=== PATIENT | female | born 1955 | race Caucasian/White ===

== ENCOUNTER 2018-06-13 05:37 | Inpatient (IN) ==
[2018-06-13] MEDS ORDERED: LIDOCAINE W/ SODIUM BICARB 0.5 ML SYR SUBD PRN ×2 (06:00→06:49)
[2018-06-13] MEDS ORDERED: BUPivacaine Liposome/PF (Exparel) Inj 20ml vial INFIL ONE ×2 (06:00→07:19)
[2018-06-13] MEDS ORDERED: ceFAZolin Inj 2gm (Premix) 2 GM/50 ML BAG IV ONE ×2 (06:00→06:02)
[2018-06-13] MEDS ORDERED: Ketorolac Inj 30 MG, Morphine Inj (Ortho Cocktail) 5 MG, BUPivacaine Inj 0.25% PF 150 MG SPLASH ONE ×3 (06:00)
[2018-06-13] MEDS ORDERED: Tranexamic Acid 1,000 MG in Sodium Chloride 0.9% 100 ML IV SCH (06:00)
[2018-06-13] MEDS ORDERED: Nasal Sanitizer POPSWAB ampule 3 AMP (Nozin) PREOP DOSE ENOS SCH (06:00)
[2018-06-13] MEDS ORDERED: Lactated Ringers 1,000 ML PRIMARY IV SCH ×2 (06:00→07:00)
[2018-06-13] MEDS ORDERED: Lactated Ringers 1,000 ML PRIMARY IV ONE (06:02)
[2018-06-13] MEDS ORDERED: LIDOCAINE W/ SODIUM BICARB 0.5 ML SYR ONE (06:02)
[2018-06-13 06:38] LABS: BILIRUBIN,URINE NEGATIVE (NEG); CLARITY,URINE Slightly Cloudy (CLEAR); COLOR,URINE YELLOW; GLUCOSE, URINE (UA) NEGATIVE (NEG); OCCULT BLOOD,URINE Trace-lysed (NEG); PROTEIN,URINE NEGATIVE (NEG); UROBILINOGEN,URINE 0.2 mg/dL (0.2)
[2018-06-13 06:46] LABS: URINE SAMPLE TYPE VOIDED SPECIMEN; WBC,URINE 0-1
[2018-06-13] MEDS ORDERED: IPRATROPIUM/ALBUTEROL SULFATE 3 ML NEB NEB ONE (06:46)
[2018-06-13 06:47] LABS: BACTERIA,URINE FEW; SQUAMOUS EPITHELIAL CELL,UR MANY
[2018-06-13] MEDS ORDERED: Ondansetron ODT Tab 8 MG TAB PO PRN (06:49)
[2018-06-13] MEDS ORDERED: HYDROmorphone 2 MG/1 ML IVP PRN (06:49)
[2018-06-13] MEDS ORDERED: Prochlorperazine Edisylate Inj 10mg/2ml vial IVP PRN (06:49)
[2018-06-13] MEDS ORDERED: ONDANSETRON 4 MG/2 ML VIAL IVP PRN (06:49)
[2018-06-13] MEDS ORDERED: fentaNYL Inj 100 MCG/2 ML VIAL IVP PRN (06:49)
[2018-06-13] MEDS ORDERED: Acetaminophen 1000mg Inj 1,000 MG/100 ML VIAL IV ONE (06:49)
--- NOTE | 2018-06-13 06:52 | CRNA.PROGR ---
Post Anesthesia Phase II - Post Anesthesia Phase II Patient Stable and Discharged To: Med/Surg Care Assumed By Surgeon: Scott Boles MD
--- NOTE | 2018-06-13 06:52 | CRNA.PROGR ---
Anesthesia Time - Procedure/Recovery Time Start Date: 06/13/18 End Date: 06/13/18 - Other Weight: 66.86 kg Height: 5 ft 6 in Body Mass Index (BMI): 23.8 Physical Status: P2 (tobacco) Anesthesia Type: General Anesthesia : ET
[2018-06-13] MEDS ORDERED: Sodium Chloride 0.9% 2,000 ML PRIMARY IV ONE (07:04)
[2018-06-13] MEDS ORDERED: Sodium Chloride 0.9% 500 ML ONE (07:04)
[2018-06-13] MEDS ORDERED: VECURONIUM BROMIDE 10 MG VIAL ONE (07:09)
[2018-06-13] MEDS ORDERED: MIDAZOLAM HCL 2 MG/2 ML VIAL ONE (07:09)
[2018-06-13] MEDS ORDERED: KETAMINE HCL 100 MG/2 ML SYRINGE IV ONE (07:09)
[2018-06-13] MEDS ORDERED: DEXAMETHASONE PF 10 MG/1 ML VIAL ONE (07:09)
[2018-06-13] MEDS ORDERED: SUFENTANIL 50 MCG/1 ML ONE (07:09)
[2018-06-13] MEDS ORDERED: Gentamicin Inj 40 MG/ML VIAL ONE (07:18)
[2018-06-13] MEDS ORDERED: Sodium Chloride 0.9% vial 40 ML ONE (07:18)
[2018-06-13] MEDS ORDERED: HEPARIN 10,000 UNIT/1 ML ONE (07:19)
[2018-06-13] MEDS ORDERED: ePHEDrine Inj 50 MG/ML AMP ONE (08:39)
[2018-06-13] MEDS ORDERED: SUGAMMADEX SODIUM 200 MG/2 ML VIAL IV ONE (09:24)
[2018-06-13 11:39] VITALS: RESP 16; TEMP 97.1
[2018-06-13 11:41] VITALS: BP 110/76; O2SAT 97
== END 2018-06-13 10:29 | disposition home or self-care (01) | DRG 951 ==
LOC: OPS 05:37
PROVIDERS: ADMIT Orthopaedic Surgery; ATTEND Orthopaedic Surgery

== ENCOUNTER 2018-06-19 09:44 | Inpatient (IN) ==
[~2018-06-19 09:44] MED LIST: BUPivacaine Liposome/PF (Exparel) Inj 20ml vial INFIL ONE; Ketorolac Inj 30 MG, Morphine Inj (Ortho Cocktail) 5 MG, BUPivacaine Inj 0.25% PF 150 MG SPLASH ONE; LIDOCAINE W/ SODIUM BICARB 0.5 ML SYR ONE; LIDOCAINE W/ SODIUM BICARB 0.5 ML SYR SUBD PRN; Lactated Ringers 1,000 ML PRIMARY IV ONE; Nasal Sanitizer POPSWAB ampule 3 AMP (Nozin) PREOP DOSE ENOS SCH; Tranexamic Acid 1,000 MG in Sodium Chloride 0.9% 100 ML IV SCH; ceFAZolin Inj 2gm (Premix) 2 GM/50 ML BAG IV ONE
[2018-06-19 10:08] LABS: BILIRUBIN,URINE NEGATIVE (NEG); CLARITY,URINE CLEAR (CLEAR); COLOR,URINE YELLOW (Y); GLUCOSE, URINE (UA) NEGATIVE (NEG); OCCULT BLOOD,URINE NEGATIVE (NEG); PH,URINE 5.5 (5.0-8.5); PROTEIN,URINE NEGATIVE (NEG); UROBILINOGEN,URINE 0.2 EU/dL (0.2)
[2018-06-19 10:09] LABS: URINE SAMPLE TYPE CLEAN CATCH URINE
[2018-06-19] MEDS ORDERED: LIDOCAINE W/ SODIUM BICARB 0.5 ML SYR SUBD PRN (10:15)
[2018-06-19] MEDS ORDERED: fentaNYL Inj 100 MCG/2 ML VIAL IVP PRN (10:15)
[2018-06-19] MEDS ORDERED: ONDANSETRON 4 MG/2 ML VIAL IVP PRN ×2 (10:15→16:22)
[2018-06-19] MEDS ORDERED: ATROPINE SULFATE 0.4 MG/1 ML VIAL IVP PRN (10:15)
[2018-06-19] MEDS ORDERED: Ondansetron ODT Tab 8 MG TAB PO PRN ×2 (10:15→16:22)
[2018-06-19] MEDS ORDERED: HYDROmorphone 2 MG/1 ML IVP PRN ×2 (10:15→16:22)
[2018-06-19] MEDS ORDERED: Lactated Ringers 1,000 ML PRIMARY IV SCH (10:15)
--- NOTE | 2018-06-19 10:16 | CRNA.PROGR ---
Anesthesia Time - Procedure/Recovery Time Start Date: 06/19/18 End Date: 06/19/18 Anesthesia : Time In: 11:38 Anesthesia : Time Out: 14:41 Anesthesia : Total Time: 183 - Total Anesthesia Time Total Anesthesia Time (minutes): 183 - Other Weight: 69.4 kg Height: 5 ft 6 in Body Mass Index (BMI): 24.7 Physical Status: P2 Anesthesia Type: General Anesthesia : ET
--- NOTE | 2018-06-19 10:17 | CRNA.PROGR ---
Post Anesthesia Phase II - Post Anesthesia Phase II Patient Stable and Discharged To: Med/Surg Care Assumed By Surgeon: Scott Boles MD Total Lyndon Score at Discharge: 9 Post Anesthesia Discharge Criteria Met: Yes
--- NOTE | 2018-06-19 10:17 | CRNA.PROGR ---
Anesthesia Recovery Phase I - Post Anesthesia Evaluation Patient's Condition on Arrival in Phase I: Stable (did very well.) Patient's Condition on Arrival in Phase II: Stable Pain Level: 2
[2018-06-19] MEDS ORDERED: IPRATROPIUM/ALBUTEROL SULFATE 3 ML NEB NEB ONE (10:25)
[2018-06-19] MEDS ORDERED: Acetaminophen 1000mg Inj 1,000 MG/100 ML VIAL IV ONE (10:25)
[2018-06-19] MEDS ORDERED: TRANEXAMIC ACID 1,000 MG / 10 ML VIAL ONE (10:56)
[2018-06-19] MEDS ORDERED: fentaNYL Inj 250 MCG/5 ML VIAL ONE (11:05)
[2018-06-19] MEDS ORDERED: MIDAZOLAM HCL 2 MG/2 ML VIAL ONE (11:06)
[2018-06-19] MEDS ORDERED: KETAMINE HCL 100 MG/2 ML SYRINGE IV ONE (11:06)
[2018-06-19] MEDS ORDERED: PROPOFOL 10 MG/1 ML (200 MG/20 ML) VIAL IV ONE (11:08)
[2018-06-19] MEDS ORDERED: Gentamicin Inj 40 MG/ML VIAL ONE (11:11)
[2018-06-19] MEDS ORDERED: Sodium Chloride 0.9% vial 40 ML ONE (11:11)
[2018-06-19] MEDS ORDERED: BUPivacaine Liposome/PF (Exparel) Inj 20ml vial INFIL ONE (11:11)
[2018-06-19] MEDS ORDERED: HEPARIN 10,000 UNIT/1 ML ONE (11:11)
[2018-06-19] MEDS ORDERED: Sodium Chloride 0.9% 0 ML PRIMARY IV ONE (11:12)
[2018-06-19] MEDS ORDERED: Sodium Chloride 0.9% 0 ML ONE (11:12)
[2018-06-19] MEDS ORDERED: VECURONIUM BROMIDE 10 MG VIAL ONE (11:13)
[2018-06-19] MEDS ORDERED: Sodium Chloride 0.9% vial 10 ML ONE (11:14)
[2018-06-19] MEDS ORDERED: Hetastarch 6% + NS 500 ML IV ONE (11:15)
[2018-06-19] MEDS ORDERED: Sodium Chloride 0.9% 500 ML ONE (11:20)
[2018-06-19] MEDS ORDERED: Sodium Chloride 0.9% 2,000 ML PRIMARY IV ONE (11:20)
[2018-06-19] MEDS ORDERED: ePHEDrine Inj 50 MG/ML AMP ONE (12:13)
[2018-06-19] MEDS ORDERED: NEOSTIGMINE 1 MG/1 ML - 10 ML ONE (14:06)
[2018-06-19] MEDS ORDERED: GLYCOPYRROLATE 0.2 MG/1 ML VIAL ONE (14:06)
[2018-06-19] MEDS ORDERED: ONDANSETRON 4 MG/2 ML VIAL ONE (14:08)
[2018-06-19] MEDS ORDERED: Sodium Chloride 0.9% 250 ML ONE (14:25)
[2018-06-19] MEDS: Lactated Ringers 1,000 ML PRIMARY IV SCH ×4 (16:00→23:07)
[2018-06-19] MEDS ORDERED: Lactated Ringers 1,000 ML PRIMARY IV ONE (16:08)
[2018-06-19] MEDS ORDERED: CALCIUM CARBONATE 500 MG (TUMS) CHEWABLE TABLET PO PRN (16:22)
[2018-06-19] MEDS ORDERED: BISACODYL 10 MG SUPPOSITORY RECTAL PRN (16:22)
[2018-06-19] MEDS ORDERED: MAG HYDROX/AL HYDROX/SIMETH 30 ML SUSP PO PRN (16:22)
[2018-06-19] MEDS ORDERED: ACETAMINOPHEN 325 MG TABLET PO PRN (16:22)
[2018-06-19] MEDS ORDERED: Prochlorperazine Tab 10 MG TAB PO PRN (16:22)
[2018-06-19] MEDS ORDERED: BISACODYL 5 MG TABLET PO PRN (16:22)
[2018-06-19] MEDS ORDERED: HYDROcodone-APAP 7.5 MG-325 MG TABLET PO PRN (16:22)
[2018-06-19] MEDS ORDERED: diphenhydrAMINE 25 MG CAPSULE PO PRN (16:22)
--- NOTE | 2018-06-19 17:03 | DI ---
AP PELVIS AND RIGHT HIP, 06/19/2018 11:43 AM: Clinical History: Status post right total hip replacement. Right hip replacement for Osteoarthritis Previous Exam: 05/22/2018. Views: AP pelvis with AP and lateral views of replaced hip. Patient is status post right total hip replacement. Prosthetic joint articulates normally. Drain tube present. Reading: Right total hip replacement. Prosthetic joint articulates normally.
--- NOTE | 2018-06-19 19:03 | ORTHO.PROG ---
Last Taken Vital Signs: Vital Signs - Last Taken Temperature 97.0 F 06/19/18 16:32 Pulse Rate 62 06/19/18 16:32 Respiratory Rate 17 06/19/18 16:32 Blood Pressure 110/63 06/19/18 16:32 Pulse Ox 100 06/19/18 16:32 Subjective: Patient having no pain Objective: Less than 25 cc drain, dressing in place with no issues. Motor and sensory with out deficit. No calf, popliteal or thigh pain, no swelling Vital Signs (Last 8 hours) Temp Pulse Pulse Resp BP BP Pulse Ox 06/19/18 16:32 97.0 F 62 17 110/63 100 06/19/18 15:57 97.1 F 55 L 14 107/64 100 06/19/18 15:47 97.1 F 52 L 14 104/65 100 06/19/18 15:37 58 L 14 107/64 100 06/19/18 15:27 66 14 103/62 100 06/19/18 15:17 76 14 84/74 100 06/19/18 15:07 97.2 F 63 14 100/72 100 06/19/18 14:57 63 14 92/60 100 06/19/18 14:47 74 14 98/59 100 06/19/18 14:42 81 14 95/61 100 06/19/18 14:37 96.9 F 81 14 99/61 100 Assessment: Right Total Hip- doing well Plan: DVT prophalaxis, pain control, mobilize with therapy.
[2018-06-19] MEDS: DOCUSATE 100 MG CAPSULE PO SCH (20:27)
[2018-06-19] MEDS: ceFAZolin Inj 2gm (Premix) 2 GM/50 ML BAG IV SCH (20:27)
[2018-06-20] MEDS: ceFAZolin Inj 2gm (Premix) 2 GM/50 ML BAG IV SCH (04:03)
[2018-06-20 04:49] LABS: Hematocrit [HCT] 32.2 % (37.0-47.0); Hemoglobin [HGB] 10.4 g/dL (12.0-16.0); MEAN CORPUSCULAR HEMOGLOBIN 28.7 PG (27-31); MEAN CORPUSCULAR HGB CONC 32.3 g/dL (33-37); MEAN PLATELET VOLUME 9.9 FL (7.4-12.2); RED BLOOD COUNT 3.62 10^6/uL (4.20-5.40)
[2018-06-20 05:00] LABS: BLOOD UREA NITROGEN 10 mg/dL (7-22); BUN/CREATININE RATIO 16.66 (6-20)
[2018-06-20] MEDS: ASPIRIN 325 MG EC TABLET PO SCH ×2 (08:38→20:43)
[2018-06-20] MEDS: DOCUSATE 100 MG CAPSULE PO SCH ×2 (08:38→20:43)
--- NOTE | 2018-06-20 10:16 | CONSULT ---
Consult Note - Consult Reason for Consult: PostOp Consulation : Ortho (Medical management) Requesting Physician: Elvi Primary Care Provider: Niki Goldman APRN - History of Present Illness History of Present Illness: This is a very nice 63-year-old the female who is been complaining of right hip pain comes in for an elective hip replacement and the hospitalist service was consulted by Dr. Boles for postop medical care. Patient denies any chest pain nausea vomiting and is doing well postop Past Medical History Medical History: None no meds other than muscle relaxer Surgical History: History of hysterectomy, and femur fracture in the past Tobacco Use: Current Every Day Smoker In the Past 12 Months, Have Used or Abuse Any of the Following Substance: None Review of Systems - Review of Systems All Systems: Reviewed & No Additional Complaints Except as Stated - Respiratory Respiratory: DENIES: Negative System Review, Cough, Sputum, Dyspnea At Rest, Dyspnea with Exertion, Pleuritic Pain, Hemoptysis, Wheezing, Other, See HPI - Cardiovascular Cardiovascular: DENIES: Negative System Review, Chest Pain, Edema, Syncope, Palpitations, Orthopnea, Paroxysmal Nocturnal Dyspnea, Other, See HPI - Gastrointestinal Gastrointestinal / Abdominal: DENIES: Negative System Review, Nausea, Vomiting, Diarrhea, Constipation, Abdominal Pain, Bloody Stool, Poor Appetite, Heartburn, Regurgitation, Bloating, Lactose Intolerance, Melena, Bright Red Blood per Rectum, Other, See HPI Medication / Allergies Home Medications: Home Medications Medication Instructions Recorded Confirmed Type cyclobenzaprine 10 mg tablet 10 mg PO TID PRN #40 tab 06/13/18 06/19/18 Rx hydrocodone 7.5 mg-acetaminophen 1 tab PO Q4-6H PRN #40 tab 06/13/18 06/19/18 Rx 325 mg tablet Allergies/Adverse Reactions: Allergies Allergy/AdvReac Type Severity Reaction Status Date / Time No Known Allergies Allergy Verified 06/19/18 10:07 Exam - Vitals Vital Signs: Vital Signs Temperature 97.8 F Temperature Source Temporal Artery Scan Pulse Rate [Pulse Oximeter] 84 Pulse Rate 55 Respiratory Rate 17 Blood Pressure [Right Arm] 98/62 Blood Pressure 107/64 Pulse Ox 98 Oxygen Flow Rate 1 Oxygen Delivery Method Room Air Height 5 ft 6 in Weight 151 lb 3.2 oz - General General Appearance: No Acute Distress, Cooperative - Head Head Exam: Normal Inspection, Normocephalic, Atraumatic - Eye Eye Exam: POSITIVE: Normal Appearance, PERRL, EOMI, No Scleral Icterus - Respiratory Respiratory Exam: POSITIVE: Clear to Auscultation - Bilaterally, Breathing Non Labored, Normal To Percussion, Normal to Percussion and Palpation - Cardiovascular Cardiovascular Exam: POSITIVE: RRR, No Murmur, No Clicks, No Gallops, No Rubs, PMI Non-Displaced - GI/Abdominal GI/Abdominal Exam: POSITIVE: Normal Bowel Sounds, Non Tender, Non Distended, Soft, No Masses, No Hepatomegaly, No Splenomegaly, No Organomegaly - Extremities Extremities Exam: POSITIVE: No Clubbing Present, No Edema Present, No Cyanosis Present Results - Labs CBC and BMP: 06/20/18 04:17 06/20/18 04:17 Assessment and Plan - Patient Problems (1) S/P hip replacement Current Visit: Yes Status: Acute Comment: Deferred to Dr. Boles for PTOT orders anticoagulation and pain control Code(s): Z96.649 - Presence of unspecified artificial hip joint - Assessment / Plan Additional Assessment/Plan Details: At present time patient appears stable and has no medical concerns labs were ordered and reviewed continue current therapies ordered by Dr. Boles
--- NOTE | 2018-06-20 10:48 | ORTHO.OP ---
- - -: See Dictated Operative Report Procedure Codes - Hip Procedures Primary Hip Procedure: 64324 : ADOLFO (jason DE LEÓN assisted)
--- NOTE | 2018-06-20 12:18 | PTI REPORT ---
Thank you for the referral of Christiana Walls. She was seen on 06/20/18 for an inpatient evaluation status post right total hip arthroplasty. SUBJECTIVE: The patient is a 63-year-old female who underwent a right total hip procedure by Dr. Boles yesterday. PAST MEDICAL HISTORY: Past medical history can be found in the patient's medical record. OBJECTIVE FINDINGS: General observations: The patient was alert and oriented x3. The patient had just finished her breakfast and was ready to get to work. Pain: The patient was in very little pain for her procedure. Transfers: The patient was able to transfer from sit to stand with stand by assist of one. Ambulation: The patient was able to ambulate several hundred feet without a rest and did exceptionally well. Edema: The patient had minimal swelling of that right lower extremity and was doing extremely well. ASSESSMENT: The patient is status post right total hip and is doing extremely well post operative. We did not attempt stairs this morning due to the IV pole, but the therapist feels the patient could do a good job. They will discontinue the use of the IV this afternoon and we will do our stairs. Problem List: Pain in the right hip Decreased passive and active range of motion of the right hip Decreased strength of the right hip Short-Term Goals: To be met by discharge from inpatient: Patient will be able to transfer from bed to stand independently. Patient will be able to ambulate 100 feet with walker, weight-bearing as tolerated. Patient will be able to ascend and descend five stairs with walker, weight- bearing as tolerated. Long-Term Goals: To be met following discharge from inpatient: Patient will be seen by outpatient physical therapy. TREATMENT PLAN: Patient will be seen B.I.D during the week and one time per day over the weekend as an inpatient for transfers, ambulation, stair training, and safety awareness. INITIAL TREATMENT: Treatment today consisted of the initial evaluation activities only. BINA
--- NOTE | 2018-06-20 16:38 | PT.PROG ---
Progress Note Progress Note: S. Patient stated that she is a little stiff this afternoon, however stated she has no pain. O. Patient ambulated 150 feet around the nurses station and ascended and descended 3 stairs. Patient was left in bed to stretch her hip, She was left with alarm and call light. A. Patient tolerated ambulation and stair training well, she was able to perform bed mobility with contact guard assist and ambulation with stand by guard assist. Patient would continue to benefit from skilled therapy to increase strength, and endurance. P. Continue POC.
--- NOTE | 2018-06-20 20:25 | ORTHO.PROG ---
Last Taken Vital Signs: Vital Signs - Last Taken Temperature 98.3 F 06/20/18 16:06 Pulse Rate 101 H 06/20/18 16:06 Respiratory Rate 18 06/20/18 16:06 Blood Pressure 100/71 06/20/18 16:06 Pulse Ox 96 06/20/18 16:06 Subjective: Patient doing well pain well controlled on oral medication Objective: Drain with a total of 170 mL from time of surgery, 50 over the last 12 hours this was removed motor and sensory exam lower extremity is good some tenderness in the thigh region around the incision site otherwise, normal motor and sensory. Laboratory Results 06/20/18 06/20/18 04:17 04:17 WBC 12.46 H RBC 3.62 L Hgb 10.4 L Hct 32.2 L MCV 89.0 MCH 28.7 MCHC 32.3 L RDW Std Deviation 39.5 RDW Coeff of Maicol 12.5 Plt Count 240 MPV 9.9 Sodium 138 Potassium 4.3 Chloride 105 Carbon Dioxide 27 Anion Gap 6 BUN 10 Creatinine 0.6 Estimated GFR > 60 BUN/Creatinine Ratio 16.66 Glucose 109 Calculated Osmolality 285.0 Calcium 9.1 Intake and Output - 8hrs 06/19/18 06/20/18 06/20/18 06/20/18 21:59 05:59 13:59 21:59 Intake: IV 2900 / 3898 998 / 3898 Intake Oral Amount 350 / 1250 900 / 1250 1205 / 2845 1640 / 2845 Dinner 240 / 240 Lunch 355 / 355 OrthoPat 150 / 150 Output: Output, Drainage Amount 120 / 120 50 / 50 Right Hip 120 / 120 50 / 50 Output, Urine Amount 500 / 500 600 / 1950 1350 / 1950 Output, Estimated Blood Loss 400 / 400 Amount Other: Percent Meal Consumed Breakfast 50% Dinner 100% Lunch 100% Drains hip right Hemovac right hip Negative Pressure Drain Weight 65.771 kg 68.583 kg Weight Measurement Method Estimated by Patient Standing Scale Vital Signs (24 hrs) 06/19/18 20:48 06/20/18 01:00 06/20/18 04:55 Temperature 97 F 97.5 F 97.3 F Pulse Rate [Pulse Oximeter] 93 74 89 Respiratory Rate 20 18 Blood Pressure [Right Arm] 103/50 108/65 111/61 Pulse Ox 100 99 99 06/20/18 06:17 06/20/18 11:02 06/20/18 16:06 Temperature 97.8 F 97.4 F 98.3 F Pulse Rate [Pulse Oximeter] 84 86 101 H Respiratory Rate 17 18 18 Blood Pressure [Right Arm] 98/62 96/58 100/71 Pulse Ox 98 98 96 Assessment: Right total hip replacement doing well Anemia Plan: Continue with current treatment with pneumatic sequentials pain control physical therapy and occupational therapy.
[2018-06-20 20:30] VITALS: RESP 16
[2018-06-21 05:15] LABS: Hemoglobin [HGB] 9.1 g/dL (12.0-16.0); MEAN CORPUSCULAR HEMOGLOBIN 29.4 PG (27-31); MEAN CORPUSCULAR HGB CONC 32.5 g/dL (33-37); MEAN CORPUSCULAR VOLUME 90.3 FL (81-99); MEAN PLATELET VOLUME 10.3 FL (7.4-12.2); RED BLOOD COUNT 3.1 10^6/uL (4.20-5.40)
[2018-06-21 05:32] LABS: BLOOD UREA NITROGEN 11 mg/dL (7-22); BUN/CREATININE RATIO 18.33 (6-20)
--- NOTE | 2018-06-21 07:01 | PDOC(PROG) ---
Interval History: Uneventful night no chest pain nausea or vomiting Objective : Data - Labs CBC and BMP: 06/21/18 04:19 06/21/18 04:19 Objective : Exam - Respiratory Respiratory Exam: Clear to Auscultation - Bilaterally, Breathing Non Labored, Normal To Percussion, Normal to Percussion and Palpation - Cardiovascular Cardiovascular Exam: RRR, No Murmur, No Clicks, No Gallops, No Rubs, PMI Non- Displaced - GI/Abdominal GI/Abdominal Exam: Normal Bowel Sounds, Non Tender, Non Distended, Soft, No Masses, No Hepatomegaly, No Splenomegaly, No Organomegaly - Extremities Extremities Exam: No Clubbing Present, No Edema Present, No Cyanosis Present Assessment and Plan - Patient Problems (1) S/P hip replacement Current Visit: Yes Status: Acute Comment: Pertinent orthopedic team for pain anticoagulation and PT OT orders Code(s): Z96.649 - Presence of unspecified artificial hip joint - Assessment / Plan Additional Assessment/Plan Details: #1 Medical management-good urine output vital signs are stable we'll add jet address postop stratification is needed labs reviewed
--- NOTE | 2018-06-21 08:01 | ORTHO.PROG ---
Last Taken Vital Signs: Vital Signs - Last Taken Temperature 98.8 F 06/21/18 04:49 Pulse Rate 98 06/21/18 04:49 Respiratory Rate 16 06/21/18 04:49 Blood Pressure 114/70 06/21/18 04:49 Pulse Ox 94 06/21/18 04:49 Subjective: Patient ambulating well with little assistance Objective: Patient's PREVENA is working fine very minimal swelling of the lower area of the incision and leg up. Motor and sensory exams nonfocal with good pulses and brisk refill Laboratory Results 06/21/18 06/21/18 04:19 04:19 WBC 10.31 RBC 3.10 L Hgb 9.1 L Hct 28.0 L MCV 90.3 MCH 29.4 MCHC 32.5 L RDW Std Deviation 40.7 RDW Coeff of Maicol 12.7 Plt Count 197 MPV 10.3 Sodium 135 Potassium 3.8 Chloride 104 Carbon Dioxide 28 Anion Gap 3 L BUN 11 Creatinine 0.6 Estimated GFR > 60 BUN/Creatinine Ratio 18.33 Glucose 84 Calculated Osmolality 277.0 Calcium 8.6 L Vital Signs (24 hrs) 06/20/18 11:02 06/20/18 16:06 06/20/18 19:00 Temperature 97.4 F 98.3 F Pulse Rate [Pulse Oximeter] 86 101 H 96 Respiratory Rate 18 18 Blood Pressure [Right Arm] 96/58 100/71 Pulse Ox 98 96 06/20/18 20:29 06/20/18 23:25 06/21/18 04:49 Temperature 98.3 F 99.6 F 98.8 F Pulse Rate [Pulse Oximeter] 96 94 98 Respiratory Rate 16 16 16 Blood Pressure [Right Arm] 110/63 113/68 114/70 Pulse Ox 98 92 94 Assessment: Right total hip replacement doing well Anemia Plan: Continue icing of the thigh, pain medication as needed, continue with physical therapy and occupational therapy and once we are able to reach our goals for safety and function at home we will see about getting the patient home. Continue with symptomatic care.
[2018-06-21 08:27] VITALS: BP 97/59; TEMP 98; O2SAT 98
[2018-06-21] MEDS: DOCUSATE 100 MG CAPSULE PO SCH (09:24)
[2018-06-21] MEDS: ASPIRIN 325 MG EC TABLET PO SCH (09:24)
--- NOTE | 2018-06-21 10:33 | OT.PROG ---
Progress Note Progress Note: S: pt stated that she felt great and has no pain. O: tx consisted of ADL task of dressing. pt completed doffing socks with use of plate slitter and inspector and donning pants and socks with use of plate slitter and inspector and sock aide independently sitting in chair. pt then doffed hospital gown and donned shirt. pt completed donning shoes with use of plate slitter and inspector independently. pt transferred out of chair independently and pulled up pants while maintaining good balance and safety. A: pt is independent in all ADL tasks and has access to all equipment and supplies she needs. P: pt is d/c from skilled Occupational Therapy services.
--- NOTE | 2018-06-21 10:46 | DCSUMMARY ---
Hospitalization Summary Hospital Course: Final Discharge Diagnosis: Current Visit Problems Problem Status Onset Code S/P hip replacement Acute Z96.649 Diagnostic Data, Laboratory Data, and Procedures of Signifigance: Laboratory Results 06/21/18 06/21/18 04:19 04:19 WBC 10.31 RBC 3.10 L Hgb 9.1 L Hct 28.0 L MCV 90.3 MCH 29.4 MCHC 32.5 L RDW Std Deviation 40.7 RDW Coeff of Maicol 12.7 Plt Count 197 MPV 10.3 Sodium 135 Potassium 3.8 Chloride 104 Carbon Dioxide 28 Anion Gap 3 L BUN 11 Creatinine 0.6 Estimated GFR > 60 BUN/Creatinine Ratio 18.33 Glucose 84 Calculated Osmolality 277.0 Calcium 8.6 L History and Physical pertinent to Admission: Course of Hospitalization: This very nice 63-year-old female with no medical problems was admitted to the hospital for elective hip replacement we see Dr. Boles H&P and operative report for details hospitalist consult consult with her medical management. Patient did well postop was cleared by PT and OT to be discharged home. Orders were put in anticoagulation PT OT recommendations and pain control as per Dr. Boles On the date of discharge, the patient was examined: Gen.: No acute distress, alert, nontoxic Heart: Regular rate and rhythm, no murmurs, clicks, gallops, or rubs Lungs: Clear to auscultation bilaterally, breathing is nonlabored Abdomen/GI: Normal tones on auscultation, soft, nontender, nondistended Musculoskeletal/extremities: No clubbing, cyanosis, or edema Vitals reviewed and are listed below Vital Signs (24 hrs) 06/20/18 11:02 06/20/18 16:06 06/20/18 19:00 Temperature 97.4 F 98.3 F Pulse Rate [Pulse Oximeter] 86 101 H 96 Respiratory Rate 18 18 Blood Pressure [Right Arm] 96/58 100/71 Pulse Ox 98 96 06/20/18 20:29 06/20/18 23:25 06/21/18 04:49 Temperature 98.3 F 99.6 F 98.8 F Pulse Rate [Pulse Oximeter] 96 94 98 Respiratory Rate 16 16 16 Blood Pressure [Right Arm] 110/63 113/68 114/70 Pulse Ox 98 92 94 06/21/18 08:26 Temperature 98 F Pulse Rate [Pulse Oximeter] 106 H Respiratory Rate 16 Blood Pressure [Right Arm] 97/59 Pulse Ox 98 Assessment and Plan: 1. As per discharge assessments above 2. Disposition: Home 3. Condition on discharge, stable and improved. 4. Diet: regular diet 5. Activities: resume normal activities 6. Follow-Up: 1. PCP 2. The Boles he will be making his the appointment 7. Medications at the Time of Discharge: Home Medications Medication Instructions Recorded Confirmed Type cyclobenzaprine 10 mg tablet 10 mg PO TID PRN #40 tab 06/13/18 06/19/18 Rx hydrocodone 7.5 mg-acetaminophen 1 tab PO Q4-6H PRN #40 tab 06/13/18 06/19/18 Rx 325 mg tablet Aspirin EC 325 mg PO BID tab 06/21/18 Dr. Boles to instruct her how many days Rx 8. Time, care, counseling and coordination of care for this discharge is greater than 30 minutes. Exam - Vitals Vital Signs: Vital Signs Temperature 98 F Temperature Source Temporal Artery Scan Pulse Rate [Pulse Oximeter] 106 Pulse Rate 55 Respiratory Rate 16 Blood Pressure [Right Arm] 97/59 Blood Pressure 107/64 Pulse Ox 98 Oxygen Flow Rate 1 Oxygen Delivery Method Room Air Height 5 ft 6 in Weight 149 lb Patient Problems - Patient Problem List (1) S/P hip replacement Current Visit: Yes Status: Acute Code(s): Z96.649 - Presence of unspecified artificial hip joint Category: Surgical
--- NOTE | 2018-06-21 11:32 | OTI REPORT ---
Thank you for the referral of Christiana Walls. She was seen on 06/20/18 for an occupational therapy inpatient evaluation status post right total hip arthroplasty. SUBJECTIVE: The patient is a 63-year-old female who is being seen secondary to having a right total hip replacement anteriorly. Prior to admission the patient was independent with all of her ADLs and reports being a very active person. The patient does have a family member that is willing to stay with her. The patient has a higher toilet in the home and does not necessarily want a shower chair at this point in time, but states that a family member does have one if she needs it. PAST MEDICAL HISTORY: Past medical history can be found in the patient's medical record. OBJECTIVE FINDINGS: Bed mobility: The patient was able to come from supine to sit with increased time. Activities of daily living: While sitting edge of bed, the patient was educated in adaptive devices. She was able to doff her socks using the bender helper independently. She was then able to don pants from foot to mid thigh level with use of bender helper independently. She was able to use the sock aide with min assist. Transfers: The patient was able to complete a sit to stand transfer with min assist. ASSESSMENT: The patient was issued a bender helper and sock aide. She did not want the bath sponge or the long handled shoe horn. The patient was able to complete functional transfers with min assist and increased time. She would benefit from at least one more session to make sure that she remembers how to use the equipment and to go over her precautions. Short-Term Goals: To be met by discharge from inpatient: Patient will be able to dress lower extremities independently with use of adaptive devices. Patient will be able to complete bed and toilet transfers with modified independence. Patient will follow hip precautions during all activity. Long-Term Goals: To be met following discharge from inpatient: Patient will return home, demonstrating modified independence and safety with all ADLs and functional transfers. TREATMENT PLAN: Patient will be seen B.I.D during the week and one time per day over the weekend as an inpatient to address the above goals and objectives. INITIAL TREATMENT: Treatment today consisted of the initial evaluation only. BINA
--- NOTE | 2018-06-21 16:41 | PT.PROG ---
Progress Note Progress Note: S. Patient stated that she is feeling good this morning, she stated she is feeling ready to go home. O. Patient ambulated 150 feet around the nurses station, she was left in chair with alarm and call light. A. Patient tolerated ambulation well, she was able to perform bed mobility with contact guard assist and ambulation with stand by guard assist. P. Patient has met all goals at this time.
== END 2018-06-21 11:16 | disposition home or self-care (01) | DRG 470 ==
LOC: OPS 09:44 → MED/SURG 16:20
PROVIDERS: ADMIT Orthopaedic Surgery; ATTEND Orthopaedic Surgery